=== PATIENT | female | born 2000 | race Caucasian/White ===

== ENCOUNTER → 2018-05-31 14:26 | Outpatient (CLI) | payer BC, MEDICAID, SELFPAY ==
[2018-05-31 17:10] LABS: HIV - WCH Non-Reactive (Nonreactive)
[2018-05-31 17:44] LABS: Chlamydia Trachomatis by PCR Negative (Negative); Neisserai gonorrhoeae by PCR Negative (Negative); Probe Check PASS; Sample Adequacy Control PASS; Specimen Processing Control PASS
[2018-06-07 03:16] LABS: Rapid Plasmin Reagin (RPR) NONREACTIVE (NONREACTIVE)
== END ==
PROVIDERS: Visit Provider Family Medicine
DX: Z20.9 Contact with and (suspected) exposure to unspecified communicable disease (principal)
CPT/HCPCS: 36415; 86592; 86703; 87491; 87591

== ENCOUNTER → 2019-12-11 15:25 | Outpatient (CLI) | payer SELFPAY ==
[2019-12-18 14:17] LABS: Chlamydia By Nucleic Acid AMP Negative; Gonococcus By Nucleic Acid AMP Negative
== END ==
PROVIDERS: PCP Family Medicine; Referring Provider Family Medicine; Visit Provider Family Medicine
DX: Z12.4 Encounter for screening for malignant neoplasm of cervix (principal); Z11.3 Encounter for screening for infections with a predominantly sexual mode of transmission
CPT/HCPCS: 87491; 87591; 88175; G0145

== ENCOUNTER → 2020-09-15 09:30 | Outpatient (CLI) | payer OTHER, SELFPAY | PROVIDERS: PCP Family Medicine; Referring Provider Family Medicine; Visit Provider Family Medicine | DX: Z20.828 Contact with and (suspected) exposure to other viral communicable diseases (principal); Z20.818 Contact with and (suspected) exposure to other bacterial communicable diseases | CPT/HCPCS: 87635; C9803; U0003 ==

== ENCOUNTER → 2021-03-01 16:36 | Outpatient (CLI) | payer OTHER, SELFPAY ==
[2016-07-16 15:46] VITALS: BMI 35.4
[2021-03-01 17:58] LABS: Absolute Lymphocyte Count 3.58 X10^3/uL (0.83-4.51); Absolute Neutrophil Count 5.7 X10^3/uL (2.0-7.7); Basophil# 0.04 X10^3/uL; Basophil% 0.4 % (0-1); Eosinophil# 0.32 X10^3/uL; Eosinophils% 3.1 % (0-5); Hemoglobin 16.3 g/dL (12.0-15.0); Lymphocyte # 3.58 X10^3/ul (4.0); Lymphocyte % 34.5 % (19-41); Mean Corp Hgb Conc 33.3 g/dL (32-36); Mean Corpuscular Hgb 32.1 pg (27.0-32.0); Mean Corpuscular Volume 96.5 fL (81-99); Mean Platelet Vol. 11.4 fl (6.2-12.0); Monocyte# 0.72 X10^3/uL; Monocyte% 6.9 % (0-10); NRBC Flagged by Analyzer 0 % (0-5); Neutrophil # 5.68 X10^3/uL (2.7-7.7); Neutrophil % 54.7 % (47-70); Platelet Count 262 K/mm3 (150-450); RBC Distribution Width CV 12.5 % (11.6-14.6); RBC Distribution Width SD 45.1 fl (35.1-43.9); Red Blood Count 5.08 M/mm3 (4.2-5.4); White Blood Count 10.4 K/mm3 (4.4-11.0)
[2021-03-01 19:03] LABS: Ferritin 54 ng/mL (8-252)
[2021-03-01 20:01] LABS: Chlamydia Trachomatis by PCR Negative (Negative); Neisserai gonorrhoeae by PCR Negative (Negative); Probe Check PASS; Sample Adequacy Control PASS; Specimen Processing Control PASS
== END ==
PROVIDERS: PCP Family Medicine; Referring Provider Family Medicine; Visit Provider Family Medicine
DX: G25.81 Restless legs syndrome (principal); Z20.9 Contact with and (suspected) exposure to unspecified communicable disease
CPT/HCPCS: 36415; 82728; 85025; 87491; 87591

== ENCOUNTER 2022-08-06 22:48 | Emergency (ER) | payer OTHER, SELFPAY ==
[2022-08-06 22:50] VITALS: BP 122/75; PULSE 71; RESP 15; TEMP 36.4; O2SAT 99; BMI 40.7
--- NOTE | 2022-08-06 23:03 | CT_ITS ---
EXAM: CT HEAD WITHOUT INTRAVENOUS CONTRAST CLINICAL INDICATION: trauma, +LOC TECHNIQUE: Multiple axial images were obtained of the head without intravenous contrast. CTDIvol = ( 44.99 ) mGy, DLP = ( 779.24 ) mGycm This CT exam was performed using one or more of the following dose reduction techniques: automated exposure control, adjustment of the mA and/or kV according to patient size, and/or use of iterative reconstruction technique. This report was created using [employer] report generation technology. COMPARISON: None. FINDINGS: BRAIN AND EXTRA-AXIAL SPACES: Unremarkable. No intra- or extra-axial hemorrhage. No evidence of acute infarct. No intracranial mass or mass effect. There is preservation of the huitron/white matter interface. Posterior fossa structures are unremarkable. Ventricles are appropriate for age. No hydrocephalus. Basal cisterns are patent. BONES/JOINTS: Unremarkable. No discrete lytic or blastic abnormalities. SINUSES: Unremarkable as visualized. Clear. MASTOID AIR CELLS: Unremarkable. Clear. ORBITS: Visualized globes, extraocular muscles, optic nerves and retrobulbar fat appear unremarkable. CT/Brain/Head without Contrast IMPRESSION: Negative head/brain CT without intravenous contrast. Electronically Signed: Deepak Hopkins MD at 23:46 EDT ,
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
== END 2022-08-06 23:53 | disposition home or self-care (01) ==
LOC: ED 23:11
PROVIDERS: Emergency Provider Emergency Medicine; PCP Family Medicine; Visit Provider Emergency Medicine
DX: S09.90XA Unspecified injury of head, initial encounter (principal); R55 Syncope and collapse; F41.9 Anxiety disorder, unspecified; R11.0 Nausea; F17.220 Nicotine dependence, chewing tobacco, uncomplicated; Z79.899 Other long term (current) drug therapy; W22.8XXA Striking against or struck by other objects, initial encounter
CPT/HCPCS: 70450; 99282

== ENCOUNTER → 2023-03-16 | Outpatient (CLI) | payer OTHER, MEDICAID, SELFPAY | END | disposition home or self-care (01) | PROVIDERS: PCP Family Medicine; Referring Provider Family Medicine; Visit Provider Family Medicine | DX: N91.5 Oligomenorrhea, unspecified (principal); Z84.0 Family history of diseases of the skin and subcutaneous tissue ==

== ENCOUNTER → 2023-03-19 | Outpatient (CLI) | payer OTHER, MEDICAID, SELFPAY ==
[2023-03-19 17:56] LABS: Absolute Lymphocyte Count 2.61 X10^3/uL (0.83-4.51); Absolute Neutrophil Count 4.9 X10^3/uL (2.0-7.7); Basophil# 0.03 X10^3/uL; Basophil% 0.4 % (0-1); Eosinophil# 0.21 X10^3/uL; Eosinophils% 2.5 % (0-5); Hematocrit 44.7 % (37-47); Hemoglobin 15.2 g/dL (12.0-15.0); Lymphocyte # 2.61 X10^3/ul (0.83-4.51); Lymphocyte % 31.3 % (19-41); Mean Corpuscular Hgb 31.3 pg (27.0-32.0); Mean Corpuscular Volume 92.2 fL (81-99); Mean Platelet Vol. 11.5 fl (6.2-12.0); Monocyte# 0.59 X10^3/uL; Monocyte% 7.1 % (0-10); NRBC Flagged by Analyzer 0 % (0-5); Neutrophil % 58.6 % (47-70); Platelet Count 233 K/mm3 (150-450); RBC Distribution Width CV 12.2 % (11.6-14.6); RBC Distribution Width SD 41.3 fl (35.1-43.9); Red Blood Count 4.85 M/mm3 (4.2-5.4); White Blood Count 8.4 K/mm3 (4.4-11.0)
[2023-03-19 18:48] LABS: Follicle Stimulating Hormone 6.4 mIU/mL; Luteinizing Hormone 6.4 mIU/mL; Thyroid Stim Hormone (TSH) 1.14 uIU/mL (0.358-3.74)
[2023-03-26 12:08] LABS: Testosterone, % Free 1.51 % (0.50-2.80); Testosterone, Free 0.74 ng/dL (0.10-0.85); Testosterone, Total 49 ng/dL (13-71)
== END | disposition home or self-care (01) ==
LOC: BFHLAB 15:46
PROVIDERS: PCP Family Medicine; Referring Provider Family Medicine; Visit Provider Family Medicine
DX: N91.5 Oligomenorrhea, unspecified (principal); Z84.0 Family history of diseases of the skin and subcutaneous tissue
CPT/HCPCS: 36415; 82627; 83001; 83002; 84402; 84403; 84443; 85025; 82626

== ENCOUNTER 2024-03-09 02:27 | Emergency (ER) | payer OTHER, MEDICAID, SELFPAY ==
[2024-03-09 02:28] VITALS: BP 135/88; PULSE 111; RESP 16; TEMP 37.1; O2SAT 99; BMI 39.3
[2024-03-09] MEDS: Penicillin Vk 250 MG Tablet 500 MG PO (03:19)
[2024-03-09 03:21] VITALS: BP 135/88; PULSE 86; RESP 15; TEMP 37.1; O2SAT 99
--- NOTE | 2024-03-15 15:41 | ED.VIS.DENTA ---
HPI History of Present Illness Chief Complaint: Dental Informant: patient Narrative Narrative: Delayed note. Patient seen 03/09/2024. Increasing dental pain for the past few days. On cold sensitivities. No fevers. No trouble swallowing. [facility] Medical History Anxiety Home Medications citalopram 20 mg tablet 20 mg PO BID 08/06/22 [History Last Taken Unknown] penicillin V potassium 500 mg tablet 500 mg PO 4X/DAY #40 tabs 03/09/24 [Rx Last Taken Unknown] Allergy/AdvReac Type Severity Reaction Status Date / Time No Known Allergies Allergy Verified 08/06/22 22:54 Social History Smoking Status: Current every day smoker tobacco type: cigarettes and e-cigarettes ROS ROS ED Constitutional Constitutional ED: Denies chills, fever(s) or sweats Eyes Eyes: Denies change in vision ENT ENT ED: Reports other Details: Dental pain ; Denies dysphagia or sore throat Cardiovascular Cardiovascular: Denies chest pain, leg edema, palpitations or racing heartbeat Respiratory/Chest Respiratory/Chest: Denies cough, dyspnea or dyspnea on exertion Gastrointestinal Gastrointestinal: Denies abdominal pain, diarrhea, nausea or vomiting Genitourinary Genitourinary ED: Denies dysuria, hematuria or urinary frequency Musculoskeletal Musculoskeletal: Denies back pain, extremity pain or neck pain Integumentary Denies rash or wounds Neurologic Neurologic: Denies headache(s), paresthesias or weakness EXAM Physical Exam Const Positive well nourished and well developed General Appearance ED: well developed and NAD HEENT Reports moist mucous membranes HEENT Narrative: No focal abscess airway patent no trismus no sublingual edema. normocephalic and atraumatic Eyes PERRL, EOMs intact bilaterally and conjunctivae normal General Eye ED: Yes normal appearance of both eyes Neck no lymphadenopathy and supple General: Negative for tenderness Chest Wall Chest: Negative for tenderness Resp normal respiratory effort and normal air movement Effort and Inspection: symmetric chest movement; Negative for respiratory distress Cardio regular rate, regular rhythm and no murmurs Peripheral Pulses: pulses 2+ throughout GI normal to inspection, nondistended, normoactive bowel sounds and non-tender Palpation: Negative for guarding or rebound tenderness present Back/Spine no CVA tenderness and no thoracic nor lumbar tenderness Extremity normal to inspection General Extremety ED: Negative for edema or tenderness General Extremity: Negative for edema Neuro oriented x3 and no sensory deficits noted Sensorium / Orientation: awake and alert Skin no rashes or lesions noted and no wounds MDM MDM MDM Narrative Medical decision making narrative: Interventions / MDM: Differential diagnosis: Dentalgia Diagnosis considered but do not suspect: No abscess, no clinical James angina. My EKG interpretation: N/A Imaging independently reviewed and interpreted by myself: N/A External documents reviewed: N/A Test considered but not ordered:N/A ED course: Patient dentalgia, nontoxic. Airway patent. Started on penicillin. Outpatient follow-up with dental list given. Re-evaluation: stable Disposition discussed with patient/family/significant other: Patient Case discussed with consulting clinician: N/A This note was generated with [employer] dictation software. It may contain incorrect words, spelling, and punctuation that were not noted in checking the note before signing. Discharge Plan Triage Chief Complaint: Dental ED Provider: Ziggy Boudreaux Dx/Rx/DC Orders Clinical Impression: Dentalgia Instructions: ED Dental Pain Prescriptions: New penicillin V potassium 500 mg tablet 500 mg PO 4X/DAY Qty: 40 0RF No Action citalopram 20 mg Tablet 20 mg PO BID Rx Instructions: TAKE 2-3 DAILY Primary Care Provider: Mariya Marie Referrals: Mariya Marie MD [Primary Care Provider] - Activity Restrictions/Additional Instructions: Take antibiotic prescribed continue Tylenol and Motrin alternating. Follow-up with dentist on dental list for definitive treatment as an outpatient. Disposition Disposition: Home, Self Care Discharge Date/Time: 03/09/24 03:21
== END 2024-03-09 03:21 | disposition home or self-care (01) ==
PROVIDERS: Emergency Provider Emergency Medicine; PCP Family Medicine; Visit Provider Emergency Medicine
DX: K08.89 Other specified disorders of teeth and supporting structures (principal); F17.210 Nicotine dependence, cigarettes, uncomplicated; F17.290 Nicotine dependence, other tobacco product, uncomplicated
CPT/HCPCS: 99282

== ENCOUNTER → 2024-03-18 | Outpatient (CLI) | payer OTHER, MEDICAID, SELFPAY | END | disposition home or self-care (01) | LOC: BFHLAB 14:59 → LABSPEC 15:02 | PROVIDERS: PCP Family Medicine; Referring Provider Family Medicine; Visit Provider Family Medicine | DX: Z12.4 Encounter for screening for malignant neoplasm of cervix (principal); Z11.3 Encounter for screening for infections with a predominantly sexual mode of transmission ==

== ENCOUNTER → 2024-08-05 | Outpatient (CLI) | payer MEDICAID, SELFPAY ==
--- NOTE | 2024-08-05 13:03 | ECHOD_ITS ---
Reason For Study: TACHYCARDIA Procedure This was a 2D Doppler, Color Flow transthoracic echocardiogram. Exam performed in department. Left Ventricle Normal size and thickness. The left ventricular ejection fraction is 65 %. Normal diastololic function. Right Ventricle Normal right ventricle. Atria The left and right atria are normal. Mitral Valve The mitral valve is structurally normal. No prolapse or stenosis seen. Tricuspid Valve Trivial tricuspid valve insufficiency. Unable to estimate RV systolic pressure due to insufficient tricuspid regurgitant envelope. Aortic Valve Trisinus/trileaflet aortic valve. Pulmonic Valve The pulmonic valve is not well visualized. Trivial pulmonic valve insufficiency. Great Vessels Normal sized aortic root. Pericardium/Pleural No pericardial effusion. MMode/2D Measurements & Calculations LVIDd: 4.7 cm IVSd: 0.76 cm LVOT diam: 2.0 cm LVIDs: 3.2 cm LVPWd: 0.58 cm LVOT area: 3.0 cm2 RVDd: 3.1 cm FS: 31.6 % asc Aorta Diam: 2.5 cm LAV(MOD-bp): 29.8 ml LVAd ap4: 22.9 cm2 LAV(MOD-bp) Indexed: 14.9 ml/m2 LVLd ap4: 7.1 cm LAV(MOD-sp2): 28.7 ml EDV(MOD-sp4): 62.0 ml LAV(MOD-sp4): 26.8 ml EDV(sp4-el): 62.8 ml LVAs ap4: 11.7 cm2 LVLs ap4: 5.4 cm ESV(MOD-sp4): 21.3 ml ESV(sp4-el): 21.7 ml EF(MOD-sp4): 65.7 % EF(sp4-el): 65.5 % LVAd ap2: 24.9 cm2 SV(MOD-sp4): 40.7 ml SV(MOD-sp2): 46.9 ml LVLd ap2: 7.6 cm EDV(MOD-sp2): 67.2 ml EDV(sp2-el): 69.2 ml LVAs ap2: 12.5 cm2 LVLs ap2: 6.5 cm ESV(MOD-sp2): 20.3 ml ESV(sp2-el): 20.4 ml EF(MOD-sp2): 69.8 % SV(sp4-el): 41.2 ml Ao sinus diam: 3.[address] Junction: 2.4 cm LA dimension(2D): 3.0 cm LA A4 area: 12.8 cm2 RA A4 area: 9.8 cm2 TAPSE: 1.9 cm Time Measurements MV dec time: 0.23 sec Doppler Measurements & Calculations MV E max jose alberto: 82.2 cm/sec Lat Peak E' Jose Alberto: 15.7 cm/sec Med Peak E' Jose Alberto: 12.1 cm/sec MV A max jose alberto: 57.3 cm/sec E/E' lat: 5.3 E/E' med: 6.8 MV E/A: 1.4 MV dec slope: 363.9 cm/sec2 Ao V2 max: 107.2 cm/sec LV V1 max: 111.3 cm/sec Ao max P.6 mmHg LV V1 max P.0 mmHg Ao V2 mean: 77.8 cm/sec LV V1 mean P.0 mmHg Ao mean P.7 mmHg LV V1 mean: 82.3 cm/sec Ao V2 VTI: 22.9 cm LV V1 VTI: 19.7 cm AV (velocity ratio): 0.86 BELLO(I,D): 2.6 cm2 BELLO(V,D): 3.2 cm2 SV(LVOT): 59.9 ml PA V2 max: 129.6 cm/sec PA max PG (full): 3.2 mmHg ECHO/Echo Complete Interpretation Summary The left ventricular ejection fraction is 65 %. Ordering Physician: Mariya Marie Referring Physician: Mariya Marie Performed By: Christa Marcial RDCS
== END | disposition home or self-care (01) ==
PROVIDERS: PCP Family Medicine; Referring Provider Family Medicine; Visit Provider Family Medicine
DX: R00.0 Tachycardia, unspecified (principal); Z82.49 Family history of ischemic heart disease and other diseases of the circulatory system; I07.9 Rheumatic tricuspid valve disease, unspecified; I37.1 Nonrheumatic pulmonary valve insufficiency
CPT/HCPCS: 93306

== ENCOUNTER 2024-10-21 02:06 | Emergency (ER) | payer MEDICAID, SELFPAY ==
[2024-10-21 02:06] VITALS: BP 143/99; PULSE 112; RESP 16; TEMP 37.2; O2SAT 99
[2024-10-21 02:08] VITALS: BMI 37.2
--- NOTE | 2024-10-21 02:14 | EX.ED.UPPERE ---
HPI History of Present Illness HPI Narrative: 24-year-old female no significant past medical history. Was making dinner. Things were falling out of the cupboard she went to catch him and jammed her right hand against the wall injuring her right small finger. No other complaints. No other injuries. She is right-hand dominant. No prior history of injury to right hand or surgery. This occurred about 2 hours ago. Patient is right-hand dominant. Chief Complaint: Upper Extremity Injury Informant: patient Occured/Mechanism Mechanism/Context: Yes injury and Yes blunt trauma Onset/Context/Timing Onset: Today Context: Sudden Onset Timing: Continuous Quality of Pain: Sharp Current Severity: Mild Maximum Severity: Mild Narrative Narrative: Healthy 24-year-old female injured her right hand on the wall at home. She is right-hand dominant. Pain is primarily to her right small finger. No other injuries. Prior similar symptoms: No Recent Illness/Hospitalization: No PFSH PFSH Medical History PTSD (post-traumatic stress disorder) Depression Anxiety Home Medications ?Medication ?Instructions ?Recorded ?Last Taken ?Type hydroxyzine HCl 25 mg tablet 12.5 - 50 mg PO TID PRN PRN anxiety 10/21/24 Unknown History Allergy/AdvReac Type Severity Reaction Status Date / Time No Known Allergies Allergy Verified 10/21/24 02:06 Family History Mother Cancer Cervical cancer Grandfather Cancer Great grandfather- Maternal Social History current occupational status: employed current occupation: [employer] Smoking Status: Current every day smoker tobacco type: e-cigarettes Electronic Cigarette Use: with nicotine alcohol intake: never substance use type: marijuana seatbelt use: always do you feel safe at home: Yes ROS ROS ED ROS Narrative Denies recent illness. Constitutional Constitutional ED: Denies chills or fever(s) Eyes Eyes: Denies blurry vision ENT ENT ED: Denies ear pain Cardiovascular Cardiovascular: Denies chest pain Respiratory/Chest Respiratory/Chest: Denies cough Gastrointestinal Gastrointestinal: Denies abdominal pain Musculoskeletal Musculoskeletal: Denies back pain Integumentary Denies abscess Neurologic Neurologic: Denies headache(s) Endocrine Endocrinology: Denies cold intolerance Hematologic/Lymphatic Hematologic/Lymphatic: Denies easy bleeding Allergic/Immunologic Allergic/Immunologic ED: Denies mouth swelling EXAM Physical Exam Narrative Exam Narrative: Well-appearing young female. Vital signs are stable afebrile. H EENT exam unremarkable atraumatic. Pupils round reactive light. Neck nontender. Back nontender. Lungs clear to auscultation bilaterally. Heart regular rhythm rate about 105 no murmur. Chest wall ribs nontender. Abdomen soft nontender. Moving all 4 extremities. Neurovascularly intact. Skin closed. Right elbow forearm and wrist are nontender. Right hand has normal flexion extension. She has tenderness along the PIP and MCP of the right small finger. However she is able to do full flexion extension. Skin is intact. No swelling. No bruising. No laceration or abrasion. Normal touch sensation. Other digits and palm of the right hand and wrist are nontender. Patient is awake and alert no focal motor deficits. Const Vital Signs: 10/21/24 02:06 Temperature 99 F Temperature Source Oral Pulse Rate 112 H Respiratory Rate 16 Blood Pressure 143/99 H Blood Pressure Mean 113 Pulse Ox 99 Oxygen Delivery Method Room Air Positive well nourished and well developed; Negative for cachectic, contractures or unkempt General Appearance ED: well developed and NAD; Negative for unkempt, cachectic, contractures, cyanotic or diaphoretic Nutritional Appearance: Negative for cachectic HEENT Reports moist mucous membranes normocephalic and atraumatic; Negative for trauma or tenderness Eyes PERRL and EOMs intact bilaterally Neck full ROM and supple General: Negative for tenderness Lymph Lymphatic: Negative for other Chest Wall inspection of chest normal and palpation of chest normal Resp normal respiratory effort and clear to auscultation bilaterally Cardio regular rhythm, S1 normal heart sound, S2 normal heart sound and no murmurs; Negative for regular rate Rate: tachycardic GI non-tender, non-distended and no masses Back/Spine no CVA tenderness Extremity full ROM; Negative for normal to inspection Extremity Narrative: Right hand. Full flexion extension. No deformity. No laceration. Mild tenderness along the MCP and PIP of the right small finger. Able to do full flexion extension. Normal touch sensation. No swelling, redness or bruising. General Extremety ED: Negative for edema General Extremity: Negative for edema Neuro oriented x3, CN's II-XII intact bilaterally and moves all extremities Sensorium / Orientation: alert, oriented to person, oriented to place and oriented to time; Negative for orientation impaired Motor Exam: strength 5/5 throughout Psych mental status grossly normal Appearance: Negative for unkempt Skin Lesions: no lesions Rashes: no rashes Trauma: no lacerations or abrasions MDM MDM MDM Narrative Medical decision making narrative: 24-year-old female accidentally injured her right hand primarily the small finger against a wall at home. X-rays are being obtained to evaluate for possible fracture versus contusion. She did not want a thing for pain. Repeat exam at 2:27 AM after x-rays. Showed no change. We went over her x-rays which were negative. This will be treated as a contusion. Ice. Alternate ibuprofen for pain and swelling and Tylenol. Follow-up if not improving for repeat evaluation. History & Record Review Discussion w/independent historian: Patient Radiography Diagnostic Testing: Right hand x-ray, 3 views, interpreted by myself shows no acute fracture nor dislocation. Discharge Plan Triage Chief Complaint: Upper Extremity Injury ED Provider: Eugene Wayne Dx/Rx/DC Orders Clinical Impression: Contusion of hand, right Instructions: ED Hand Contusion Prescriptions: No Action hydroxyzine HCl 25 mg tablet 12.5 - 50 mg PO TID PRN PRN (Reason: anxiety) Primary Care Provider: Mariya Marie Referrals: Mariya Marie MD [Primary Care Provider] - 1 Week if not improving Activity Restrictions/Additional Instructions: Right hand x-ray looks good. No broken or dislocated bones. Ice the area to decrease pain and swelling. Ibuprofen for pain and swelling and Tylenol for pain. This should progressively improve it will be sore for the next few days and then should progressively get better. If is not getting better have it reevaluated. Print Language: Czech Disposition Disposition: Home, Self Care
--- NOTE | 2024-10-21 02:20 | RAD_ITS ---
INDICATION: injury STUBBED RT 5TH FINGER ON WALL. RT 5TH FINGER PAIN EXAMINATION/TECHNIQUE: X-RAY - RIGHT XR Hand Min 3 Views 3 VIEWS COMPARISON: No relevant prior comparison study available FINDINGS: BONES: No fracture demonstrated. JOINTS: No dislocation. SOFT TISSUES: Unremarkable. RAD/Hand Min 3 Views IMPRESSION: No evidence of fracture. Electronically Signed: Yanni Ng MD at 3:39 EST ,
== END 2024-10-21 02:35 | disposition home or self-care (01) ==
PROVIDERS: Emergency Provider Emergency Medicine; PCP Family Medicine; Visit Provider Emergency Medicine
DX: S60.221A Contusion of right hand, initial encounter (principal); F17.210 Nicotine dependence, cigarettes, uncomplicated; W20.8XXA Other cause of strike by thrown, projected or falling object, initial encounter; F17.290 Nicotine dependence, other tobacco product, uncomplicated
CPT/HCPCS: 73130; 99282